=== PATIENT | female | born 1935 | race Caucasian/White ===

== ENCOUNTER → 2017-07-23 | Outpatient (CLI) | payer MEDICARE, MEDICAID ==
[~2017-07-23] MED LIST: CHOL200024 PO; FAMO40TA61 PO; IBUP-1484 PO; LOSA25TA5 PO; OXYB5TAB7 PO
[2017-07-23 09:47] LABS: HEMATOCRIT 40.6 % (34.6-47.8); HEMOGLOBIN 13.6 g/dL (11.7-16.4); WHITE BLOOD COUNT 8.9 x10^3/uL (3.4-10)
[2017-07-23 09:56] LABS: BLOOD UREA NITROGEN 12 mg/dL (7-18)
[2017-07-23 09:59] LABS: ASPARTATE AMINO TRANSFERASE 19 U/L (15-37)
[2017-07-23 10:29] LABS: HIV 1&2 ANTIBODY SCREEN Nonreactive (Nonreactive); HIV-1 p24 ANTIGEN Nonreactive (Nonreactive)
== END | disposition home or self-care (01) ==
LOC: STAR 08:07
PROVIDERS: ATTEND Orthopaedic Surgery
DX: Z01.818 Encounter for other preprocedural examination (principal); T84.84XS Pain due to internal orthopedic prosthetic devices, implants and grafts, sequela; R94.31 Abnormal electrocardiogram [ECG] [EKG]; M17.12 Unilateral primary osteoarthritis, left knee; R79.1 Abnormal coagulation profile; R79.89 Other specified abnormal findings of blood chemistry; Z96.652 Presence of left artificial knee joint
CPT/HCPCS: 36415; 80053; 83036; 85025; 85610; 85730; 86703; 87081; 87899; 93005; G0435

== ENCOUNTER → 2018-03-08 | Outpatient (CLI) | payer MEDICARE, MEDICAID ==
[~2018-03-08] MED LIST changes: +ACET-709 PO; +ASPI-621 PO; +CALC-534 PO; +CELE200C PO; +DIAZ5TAB PO; +DOCU-131 PO; +FISH OIL; +FISH1CAP PO; +FLUC200T4 PO; +MELA1TAB8 PO; +NAPR-856 PO; +ONDA4TAB10 PO; +OXYC5CAP2 PO; +OXYC5TAB2 PO; +RANI150T4 PO; +TRAM50TA2 PO
[2018-03-08 10:26] LABS: BASOPHILS # (AUTO) 0.04 x10^3/uL (0-0.1); BASOPHILS % (AUTO) 0 % (0-1); EOSINOPHILS # (AUTO) 0.33 x10^3/uL (0-0.4); EOSINOPHILS % (AUTO) 3 % (1-7); LYMPHOCYTES # (AUTO) 3.18 x10^3/uL (1-3.4); LYMPHOCYTES % (AUTO) 28 % (22-44); MD NO; MEAN CORPUSCULAR HEMOGLOBIN 29.7 pg (27.0-34.8); MEAN CORPUSCULAR VOLUME 87.3 fL (80-100); MEAN PLATELET VOLUME 8.7 fL (7.4-10.4); MONOCYTES # (AUTO) 0.72 x10^3/uL (0.2-0.8); MONOCYTES % (AUTO) 6 % (2-9); NEUTROPHILS # (AUTO) 7.14 x10^3/uL (1.8-6.8); NEUTROPHILS % (AUTO) 63 % (42-75); PLATELET COUNT 269 x10^3/uL (130-400); RED BLOOD COUNT 4.67 x10^6/uL (3.82-5.3); RED CELL DISTRIBUTION WIDTH 14.6 % (9.6-15.2)
[2018-03-08 10:28] LABS: MICROSCOPIC NOT IND
[2018-03-08 10:31] LABS: INTERNATIONAL NORMALIZED RATIO 0.99 (0.93-1.1); PROTHROMBIN TIME 10.3 Seconds (9.6-11.5)
[2018-03-08 10:34] LABS: CULTURE INDICATED? NO
[2018-03-08 10:37] LABS: CHLORIDE 102 mmol/L (98-107)
[2018-03-08 10:48] LABS: ALANINE AMINOTRANSFERASE 22 U/L (12-78); ALBUMIN 4.3 g/dL (3.4-5.0); ALKALINE PHOSPHATASE 119 U/L (45-117); ANION GAP 6 mmol/L (5-15); BILIRUBIN,TOTAL 0.6 mg/dL (0.2-1.0); CREATININE 0.76 mg/dL (0.55-1.02); TOTAL PROTEIN 7.7 g/dL (6.4-8.2)
[2018-03-08 12:35] LABS: HEMOGLOBIN A1C 5.4 % (4.2-6.3)
== END | disposition home or self-care (01) ==
LOC: STAR 08:44
PROVIDERS: ATTEND Orthopaedic Surgery
DX: Z01.818 Encounter for other preprocedural examination (principal); M17.11 Unilateral primary osteoarthritis, right knee
CPT/HCPCS: 36415; 80053; 81003; 83036; 85025; 85610; 85730; 87081; 87147; 87806; 93005; G0475

== ENCOUNTER 2018-03-14 05:37 | Observation (INO) | payer MEDICARE, MEDICAID ==
[~2018-03-14] VITALS: Ht 149.9 cm; Wt 74.2 kg
[2018-03-14] MEDS ORDERED: VANCOMYCIN PER PHARMACY MC ONE (06:04)
[2018-03-14] MEDS ORDERED: LACTATED RINGERS 1,000 ML IV SCH (06:14)
[2018-03-14] MEDS ORDERED: GABAPENTIN 300 MG CAPSULE PO ONE (06:30)
[2018-03-14] MEDS ORDERED: VANCOMYCIN PMX 1GM/200ML 200 ML IV ONE (06:30)
[2018-03-14] MEDS ORDERED: ACETAMINOPHEN 500 MG TABLET PO ONE (06:30)
[2018-03-14] MEDS ORDERED: KETOROLAC 60 MG/2 ML ONE (06:41)
[2018-03-14] MEDS ORDERED: TRANEXAMIC ACID 100 MG/ML, 10ML ONE ×4 (06:41)
[2018-03-14 06:42] VITALS: BP 150/84
[2018-03-14] MEDS ORDERED: EPINEPHRINE 1 MG/ML, 1ML ONE (06:42)
[2018-03-14] MEDS ORDERED: ROPIvacaine/PF 0.2%, 20 ML ONE (06:42)
[2018-03-14] MEDS ORDERED: MIDAZOLAM 1 MG/ML, 2ML ONE (06:56)
[2018-03-14] MEDS ORDERED: FENTANYL PF 100 MCG/2ML ONE (06:56)
[2018-03-14] MEDS ORDERED: EPHEDRINE 50 MG/ML, 1ML IM PRN (08:00)
[2018-03-14] MEDS ORDERED: FENTANYL PF 100 MCG/2ML IV PRN (08:00)
[2018-03-14] MEDS ORDERED: hydrALAzine 20 MG/ML, 1ML IV PRN (08:00)
[2018-03-14] MEDS ORDERED: MEPERIDINE/PF 25MG/0.5ML IVPush PRN (08:00)
[2018-03-14] MEDS ORDERED: PROMETHAZINE 25 MG/ML, 1ML IM PRN ×2 (08:00→09:30)
[2018-03-14] MEDS ORDERED: LORazepam 2 MG/ML, 1ML IVPush PRN (08:00)
[2018-03-14] MEDS ORDERED: ONDANSETRON ODT 8 MG PO PRN (08:00)
[2018-03-14] MEDS ORDERED: MORPHINE SULFATE 4 MG/ML, 1ML IVPush PRN (08:00)
[2018-03-14] MEDS ORDERED: LABETALOL 5MG/ML, 20ML IV PRN (08:00)
[2018-03-14] MEDS ORDERED: ALBUTEROL/IPRATROPIUM 2.5MG/0.5MG, 3 ML NPPB PRN (08:00)
[2018-03-14] MEDS ORDERED: DIAZEPAM 5 MG/ML, 2ML IVPush PRN (08:00)
[2018-03-14] MEDS ORDERED: MIDAZOLAM 1 MG/ML, 2ML IV PRN (08:00)
[2018-03-14] MEDS ORDERED: OXYcodone 5 MG/5 ML ORAL.SOL UDC PO PRN (08:00)
[2018-03-14] MEDS ORDERED: PROMETHAZINE 25 MG/ML, 1ML IV PRN (08:00)
[2018-03-14] MEDS ORDERED: HYDROmorphone 1 MG/ML, 1ML IV PRN (08:00)
[2018-03-14] MEDS ORDERED: SCOPOLAMINE PATCH, 1.5MG PATCH.TD72 TD PRN ×2 (08:00→09:30)
[2018-03-14] MEDS ORDERED: BUPIVACAINE/PF 0.25% ONE (08:37)
[2018-03-14] MEDS ORDERED: DEXAMETHASONE 4 MG/ML, 1ML ONE (08:37)
[2018-03-14] MEDS ORDERED: PROPOFOL 10 MG/ML, 20ML ONE (08:37)
[2018-03-14] MEDS ORDERED: CEFAZOLIN 1,000 MG ONE (08:37)
[2018-03-14] MEDS ORDERED: ONDANSETRON 2MG/ML, 2ML ONE (08:37)
[2018-03-14] MEDS ORDERED: LIDOCAINE-MPF 2% ,5ML ONE (08:37)
[2018-03-14] MEDS ORDERED: MORPHINE SULFATE 4 MG/ML, 1ML ONE (08:45)
[2018-03-14] MEDS ORDERED: TRANEXAMIC ACID 1,000 MG in SODIUM CHLORIDE 0.9% 100 ML IVPB ONE (09:30)
[2018-03-14] MEDS ORDERED: DIPHENHYDRAMINE 50 MG CAPSULE PO PRN (09:30)
[2018-03-14] MEDS ORDERED: morphine SULFATE 10 MG/ML, 1ML IV PRN (09:30)
[2018-03-14] MEDS ORDERED: MAGNESIUM HYDROXIDE 8%, 30ML UDC PO PRN (09:30)
[2018-03-14] MEDS ORDERED: DIAZEPAM 5 MG TABLET PO PRN (09:30)
[2018-03-14] MEDS ORDERED: OXYcodone IR 5MG TABLET PO PRN (09:30)
[2018-03-14] MEDS: CEFAZOLIN PMX 1GM/50ML 50 ML IVPB SCH ×3 (09:30→19:00)
[2018-03-14] MEDS ORDERED: ONDANSETRON 4 MG TABLET PO PRN (09:30)
[2018-03-14 10:30] VITALS: BP 117/65
[2018-03-14 14:15] VITALS: BP 103/60
[2018-03-14 20:00] VITALS: BP 95/58
[2018-03-14] MEDS ORDERED: MELATONIN 5 MG TABLET PO SCH (21:00)
[2018-03-14] MEDS ORDERED: FAMOTIDINE 40 MG TABLET PO SCH (21:00)
[2018-03-14] MEDS: DOCUSATE 100 MG CAPSULE PO SCH (21:19)
[2018-03-15 00:01] VITALS: BP 109/59
[2018-03-15] MEDS: HYDROcodone/APAP 5/325 TABLET PO PRN ×4 (00:03→14:06)
[2018-03-15] MEDS ORDERED: CEFAZOLIN PMX 1GM/50ML 50 ML IVPB SCH (03:00)
[2018-03-15 05:26] VITALS: BP 98/53
[2018-03-15 07:00] VITALS: BP 100/65
[2018-03-15 07:38] VITALS: BP 100/65
[2018-03-15] MEDS ORDERED: OXYBUTYNIN CHLORIDE 5 MG TABLET PO SCH ×2 (09:00)
[2018-03-15] MEDS ORDERED: FLUCONAZOLE 200 MG TABLET PO SCH ×2 (09:00)
[2018-03-15] MEDS ORDERED: CALCIUM/VITAMIN D3 250-125 TABLET PO SCH (09:00)
[2018-03-15] MEDS ORDERED: LOSARTAN 25MG TABLET PO SCH ×2 (09:00)
[2018-03-15] MEDS ORDERED: NAPROXEN 500 MG TABLET PO SCH (09:00)
[2018-03-15] MEDS ORDERED: ASPI-515 PO (09:26)
[2018-03-15] MEDS ORDERED: ONDA4TAB7 PO (09:28)
[2018-03-15] MEDS ORDERED: DOCU-131 PO (09:28)
[2018-03-15] MEDS ORDERED: TRAM50TA2 PO (09:29)
[2018-03-15] MEDS ORDERED: DIAZ5TAB PO (09:30)
[2018-03-15] MEDS ORDERED: CELE200C PO (09:32)
[2018-03-15] MEDS ORDERED: OXYC5TAB3 PO (09:34)
[2018-03-15] MEDS ORDERED: MAGN400O7 PO (09:39)
[2018-03-15] MEDS: DOCUSATE 100 MG CAPSULE PO SCH (09:49)
[2018-03-15 13:14] VITALS: BP 103/62
[2018-03-15 14:51] VITALS: BP 110/74
[2018-03-15] MEDS ORDERED: ASPIRIN 325 MG TABLET EC PO SCH (18:00)
== END 2018-03-15 14:50 | disposition home or self-care (01) ==
LOC: INTOOBSV 05:37 → ORIP 05:37 → 4NOR 10:22 → DCLOUNGE 03-15 14:15
PROVIDERS: ADMIT Orthopaedic Surgery; ATTEND Orthopaedic Surgery
DX: M17.11 Unilateral primary osteoarthritis, right knee (principal); I10 Essential (primary) hypertension
CPT/HCPCS: 27447; 73560; 96365; 96375; 97116; 97150; 97161; 97530; C1713; C1776; G0378; J0171; J0690; J1100; J1885; J2250; J2405; J2704; J2795; J3010; J3370; J3490; J7120

== ENCOUNTER → 2019-08-31 | Outpatient (CLI) | payer MEDICARE, MEDICAID ==
[~2019-08-31] MED LIST changes: +ASPI-515 PO; -ASPI-621 PO; +ASPI81TA45 PO; -IBUP-1484 PO; +IBUP-1902 PO; +LOSA25TA25 PO; -LOSA25TA5 PO; +MAGN400O7 PO; +ONDA4TAB7 PO; +OXYB5TAB10 PO; -OXYB5TAB7 PO; +OXYC5TAB3 PO
== END | disposition home or self-care (01) ==
LOC: CFH 08:01
PROVIDERS: ATTEND Registered Nurse
DX: I08.8 Other rheumatic multiple valve diseases (principal); J96.11 Chronic respiratory failure with hypoxia; I10 Essential (primary) hypertension; Z74.09 Other reduced mobility; Z77.22 Contact with and (suspected) exposure to environmental tobacco smoke (acute) (chronic); Z68.32 Body mass index [BMI] 32.0-32.9, adult
CPT/HCPCS: 93306

== ENCOUNTER 2019-09-05 19:24 | Inpatient (IN) | payer MEDICARE, MEDICAID ==
[~2019-09-05] VITALS: Ht 154.9 cm; Wt 76.9 kg
--- NOTE | 2019-09-05 19:32 | NUR ---
PT BIB EMS FROM HOME. PT HAS HOME RESP THERAPY TX PER PULMONOLOGY, AFTER DOING BREATHING EXERCISES PT EXPRESSED FEELING SOB AND HAVING CP. UPON EMS ARRIVAL PT ON 2L NC PT SAT LOW 80'S, PT PLACED ON 6L NC AND SATS IMPROVED TO 90'S. PT HAS HX OF HTN AND SOME TYPE OF PULMONARY DISEASE. PT CONNECTED TO ALL MONITORING VSS, CALL LIGHT IN REACH. PA AT BEDSIDE TO ASSESS PT.
[2019-09-05 19:55] LABS: BASOPHILS # (AUTO) 0.03 x10^3/uL (0-0.1); BASOPHILS % (AUTO) 0 % (0-1); EOSINOPHILS # (AUTO) 0.02 x10^3/uL (0-0.4); EOSINOPHILS % (AUTO) 0 % (1-7); LYMPHOCYTES # (AUTO) 0.88 x10^3/uL (1-3.4); LYMPHOCYTES % (AUTO) 7 % (22-44); MD NO; MEAN CORPUSCULAR HGB CONC 32.5 g/dL (32.4-35.8); MEAN CORPUSCULAR VOLUME 89.1 fL (80-100); MEAN PLATELET VOLUME 8.1 fL (7.4-10.4); MONOCYTES # (AUTO) 0.14 x10^3/uL (0.2-0.8); MONOCYTES % (AUTO) 1 % (2-9); NEUTROPHILS # (AUTO) 11.95 x10^3/uL (1.8-6.8); NEUTROPHILS % (AUTO) 92 % (42-75); PLATELET COUNT 292 x10^3/uL (130-400); RED BLOOD COUNT 4.63 x10^6/uL (3.82-5.3); RED CELL DISTRIBUTION WIDTH 17.3 % (9.6-15.2)
[2019-09-05] MEDS ORDERED: ALBUTEROL/IPRATROPIUM 2.5MG/0.5MG, 3 ML NPPB ONE (20:00)
[2019-09-05 20:07] LABS: ALANINE AMINOTRANSFERASE 35 U/L (12-78); ALBUMIN 3.3 g/dL (3.4-5.0); ANION GAP 10 mmol/L (5-15); CALCIUM 8.9 mg/dL (8.5-10.1); CHLORIDE 95 mmol/L (98-107); CREATININE 1.17 mg/dL (0.55-1.02)
[2019-09-05 20:11] LABS: ALKALINE PHOSPHATASE 82 U/L (45-117); BILIRUBIN,TOTAL 0.8 mg/dL (0.2-1.0)
[2019-09-05] MEDS: ASPIRIN 325 MG TABLET PO ONE ×2 (20:30→20:37)
[2019-09-05] MEDS ORDERED: FUROSEMIDE 40 MG/4 ML IV ONE (20:30)
[2019-09-05] MEDS ORDERED: ASPIRIN 325 MG TABLET ONE (20:34)
[2019-09-05] MEDS ORDERED: FUROSEMIDE 40 MG/4 ML ONE (20:35)
--- NOTE | 2019-09-05 20:37 | NUR ---
PT MEDICATED PER DEC. PER PT AND FAMILY PT GOT ASA EN ROUTE, MD UPDATED. ASA NOT GIVEN HERE PER MD
[2019-09-05] MEDS ORDERED: MORPHINE SULFATE 4 MG/ML, 1ML IVPush ONE (21:30)
[2019-09-05] MEDS ORDERED: morphine SULFATE 10 MG/ML, 1ML IVPush PRN (22:30)
[2019-09-05] MEDS ORDERED: OXYcodone IR 5MG TABLET PO PRN (22:30)
[2019-09-05] MEDS ORDERED: ONDANSETRON 2MG/ML, 2ML IVPush PRN (22:30)
[2019-09-05] MEDS ORDERED: hydrALAzine 20 MG/ML, 1ML IVPush PRN (22:30)
[2019-09-05] MEDS ORDERED: PROMETHAZINE 25 MG/ML, 1ML IM PRN (22:30)
[2019-09-05] MEDS ORDERED: ONDANSETRON ODT 4 MG PO PRN (22:30)
[2019-09-05] MEDS ORDERED: BISACODYL 10 MG SUPP PR PRN (22:30)
[2019-09-05 22:42] VITALS: BP 128/85
[2019-09-05 22:50] LABS: FREE T4 (FREE THYROXINE) 1.19 ng/dL (0.76-1.46)
[2019-09-06 00:28] VITALS: BP 105/72
[2019-09-06] MEDS: HEPARIN 5,000 UNITS/ML, 1ML SQ SCH ×4 (01:22→22:55)
[2019-09-06] MEDS ORDERED: OMNIPAQUE 350 MG/ML, 100ML BOTTLE ONE (03:14)
[2019-09-06 06:32] LABS: BASOPHILS # (AUTO) 0.02 x10^3/uL (0-0.1); BASOPHILS % (AUTO) 0 % (0-1); EOSINOPHILS # (AUTO) 0.16 x10^3/uL (0-0.4); EOSINOPHILS % (AUTO) 2 % (1-7); LYMPHOCYTES # (AUTO) 1.71 x10^3/uL (1-3.4); LYMPHOCYTES % (AUTO) 16 % (22-44); MD NO; MEAN CORPUSCULAR HEMOGLOBIN 28.7 pg (27.0-34.8); MEAN CORPUSCULAR HGB CONC 32.3 g/dL (32.4-35.8); MEAN CORPUSCULAR VOLUME 88.8 fL (80-100); MEAN PLATELET VOLUME 8.4 fL (7.4-10.4); MONOCYTES # (AUTO) 0.45 x10^3/uL (0.2-0.8); MONOCYTES % (AUTO) 4 % (2-9); NEUTROPHILS # (AUTO) 8.13 x10^3/uL (1.8-6.8); NEUTROPHILS % (AUTO) 78 % (42-75); PLATELET COUNT 268 x10^3/uL (130-400); RED CELL DISTRIBUTION WIDTH 17.8 % (9.6-15.2)
[2019-09-06 06:37] LABS: ALBUMIN 3.3 g/dL (3.4-5.0); CALCIUM 8.5 mg/dL (8.5-10.1); CHLORIDE 94 mmol/L (98-107)
[2019-09-06 06:43] LABS: ALANINE AMINOTRANSFERASE 37 U/L (12-78); ALKALINE PHOSPHATASE 75 U/L (45-117); ANION GAP 8 mmol/L (5-15); BILIRUBIN,TOTAL 0.7 mg/dL (0.2-1.0); CHOL/HDL RATIO 2.6; CHOLESTEROL, TOTAL 153 mg/dL (140-239); CREATININE 0.87 mg/dL (0.55-1.02); HDL CHOL % 39 % (28-40); HDL CHOLESTEROL (DIRECT) 60 mg/dL (40-60); LDL CHOLESTEROL,CALCULATED 74 mg/dL (54-169); LDL/HDL RATIO 1.2 (0.5-3.0); TOTAL PROTEIN 6.5 g/dL (6.4-8.2); TRIGLYCERIDES 95 mg/dL (50-200); VLDL CHOLESTEROL 19 mg/dL (0-25)
[2019-09-06 06:54] VITALS: BP 155/90
[2019-09-06] MEDS: FUROSEMIDE 20 MG/2 ML IV SCH (08:38)
[2019-09-06 14:33] VITALS: BP 100/64
[2019-09-06 19:10] VITALS: BP 121/58
[2019-09-07 01:34] VITALS: BP 122/82
[2019-09-07] MEDS: HEPARIN 5,000 UNITS/ML, 1ML SQ SCH ×3 (07:38→23:05)
[2019-09-07] MEDS: FUROSEMIDE 20 MG/2 ML IV SCH (07:38)
[2019-09-07 07:44] VITALS: BP 123/77
[2019-09-07 08:10] LABS: BASOPHILS % (AUTO) 1 % (0-1); EOSINOPHILS # (AUTO) 0.95 x10^3/uL (0-0.4); EOSINOPHILS % (AUTO) 9 % (1-7); LYMPHOCYTES # (AUTO) 1.93 x10^3/uL (1-3.4); LYMPHOCYTES % (AUTO) 18 % (22-44); MD NO; MEAN CORPUSCULAR HEMOGLOBIN 28.6 pg (27.0-34.8); MEAN CORPUSCULAR HGB CONC 32.6 g/dL (32.4-35.8); MEAN CORPUSCULAR VOLUME 87.8 fL (80-100); MEAN PLATELET VOLUME 7.7 fL (7.4-10.4); MONOCYTES % (AUTO) 5 % (2-9); NEUTROPHILS # (AUTO) 7.34 x10^3/uL (1.8-6.8); NEUTROPHILS % (AUTO) 68 % (42-75); PLATELET COUNT 279 x10^3/uL (130-400); RED BLOOD COUNT 4.64 x10^6/uL (3.82-5.3); RED CELL DISTRIBUTION WIDTH 17.6 % (9.6-15.2)
[2019-09-07 08:20] LABS: ANION GAP 7 mmol/L (5-15); CALCIUM 8.6 mg/dL (8.5-10.1); CHLORIDE 94 mmol/L (98-107); CREATININE 0.92 mg/dL (0.55-1.02)
[2019-09-07 12:51] VITALS: BP 123/86
[2019-09-07] MEDS ORDERED: MELO7.5T31 PO (15:55)
[2019-09-07] MEDS ORDERED: PRED5TAB19 PO (15:55)
[2019-09-07] MEDS ORDERED: ESCI10TA PO (15:55)
[2019-09-07] MEDS ORDERED: OMEP20CA14 PO (15:55)
[2019-09-07] MEDS ORDERED: CETI10TA32 PO (15:55)
[2019-09-07 20:03] VITALS: BP 121/83
[2019-09-07] MEDS: OXYBUTYNIN CHLORIDE 5 MG TABLET PO SCH (21:26)
[2019-09-08 02:00] VITALS: BP 125/83
[2019-09-08 05:59] LABS: BASOPHILS # (AUTO) 0.05 x10^3/uL (0-0.1); BASOPHILS % (AUTO) 0 % (0-1); EOSINOPHILS # (AUTO) 0.89 x10^3/uL (0-0.4); EOSINOPHILS % (AUTO) 8 % (1-7); LYMPHOCYTES # (AUTO) 1.73 x10^3/uL (1-3.4); LYMPHOCYTES % (AUTO) 16 % (22-44); MD NO; MEAN CORPUSCULAR HEMOGLOBIN 29.1 pg (27.0-34.8); MEAN CORPUSCULAR HGB CONC 32.9 g/dL (32.4-35.8); MEAN CORPUSCULAR VOLUME 88.6 fL (80-100); MEAN PLATELET VOLUME 8.2 fL (7.4-10.4); MONOCYTES # (AUTO) 0.66 x10^3/uL (0.2-0.8); MONOCYTES % (AUTO) 6 % (2-9); NEUTROPHILS # (AUTO) 7.41 x10^3/uL (1.8-6.8); NEUTROPHILS % (AUTO) 69 % (42-75); PLATELET COUNT 281 x10^3/uL (130-400); RED BLOOD COUNT 4.73 x10^6/uL (3.82-5.3); RED CELL DISTRIBUTION WIDTH 17.3 % (9.6-15.2)
[2019-09-08 06:10] LABS: ANION GAP 5 mmol/L (5-15); CALCIUM 8.8 mg/dL (8.5-10.1); CHLORIDE 94 mmol/L (98-107); CREATININE 0.77 mg/dL (0.55-1.02)
[2019-09-08 07:16] VITALS: BP 106/70
[2019-09-08] MEDS: OMEPRAZOLE 20 MG CAPSULE.DR PO SCH (07:42)
[2019-09-08] MEDS: HEPARIN 5,000 UNITS/ML, 1ML SQ SCH ×3 (07:42→23:09)
[2019-09-08] MEDS: LOSARTAN 25MG TABLET PO SCH (09:25)
[2019-09-08] MEDS: OXYBUTYNIN CHLORIDE 5 MG TABLET PO SCH ×2 (09:26→20:38)
[2019-09-08] MEDS: FLUCONAZOLE 200 MG TABLET PO SCH (09:26)
[2019-09-08] MEDS: CETIRIZINE 10 MG TABLET PO SCH (09:26)
[2019-09-08] MEDS: FUROSEMIDE 20 MG/2 ML IV SCH (09:27)
[2019-09-08] MEDS: ESCITALOPRAM 10MG TABLET PO SCH (09:35)
[2019-09-08] MEDS ORDERED: SPIRONOLACTONE 25 MG TABLET PO SCH (10:00)
[2019-09-08] MEDS: SILDENAFIL 20 MG TABLET PO SCH ×3 (11:11→20:38)
[2019-09-08 12:56] VITALS: BP 94/63
[2019-09-08 19:23] VITALS: BP 105/69
[2019-09-08] MEDS ORDERED: SODIUM CHLORIDE NASAL SPRAY 45ML BOTTLE NAS PRN (21:30)
[2019-09-09 00:29] VITALS: BP 112/72
[2019-09-09 05:01] LABS: BASOPHILS # (AUTO) 0.04 x10^3/uL (0-0.1); BASOPHILS % (AUTO) 0 % (0-1); EOSINOPHILS # (AUTO) 0.66 x10^3/uL (0-0.4); EOSINOPHILS % (AUTO) 6 % (1-7); LYMPHOCYTES # (AUTO) 2.27 x10^3/uL (1-3.4); LYMPHOCYTES % (AUTO) 21 % (22-44); MD NO; MEAN CORPUSCULAR HEMOGLOBIN 29.1 pg (27.0-34.8); MEAN CORPUSCULAR HGB CONC 32.6 g/dL (32.4-35.8); MEAN CORPUSCULAR VOLUME 89.4 fL (80-100); MEAN PLATELET VOLUME 8.5 fL (7.4-10.4); MONOCYTES # (AUTO) 0.67 x10^3/uL (0.2-0.8); MONOCYTES % (AUTO) 6 % (2-9); NEUTROPHILS # (AUTO) 7.23 x10^3/uL (1.8-6.8); NEUTROPHILS % (AUTO) 67 % (42-75); PLATELET COUNT 294 x10^3/uL (130-400); RED BLOOD COUNT 4.74 x10^6/uL (3.82-5.3); RED CELL DISTRIBUTION WIDTH 17.2 % (9.6-15.2)
[2019-09-09 05:11] LABS: ANION GAP 5 mmol/L (5-15); CALCIUM 8.9 mg/dL (8.5-10.1); CHLORIDE 95 mmol/L (98-107)
[2019-09-09 05:12] LABS: CREATININE 0.75 mg/dL (0.55-1.02)
[2019-09-09] MEDS: HEPARIN 5,000 UNITS/ML, 1ML SQ SCH ×3 (06:04→22:51)
[2019-09-09] MEDS: OMEPRAZOLE 20 MG CAPSULE.DR PO SCH (06:04)
[2019-09-09 07:50] VITALS: BP 101/68
[2019-09-09] MEDS ORDERED: POTASSIUM CHLORIDE 20 MEQ TAB.ER.PRT PO ONE (08:00)
[2019-09-09] MEDS: LOSARTAN 25MG TABLET PO SCH (08:37)
[2019-09-09] MEDS: OXYBUTYNIN CHLORIDE 5 MG TABLET PO SCH ×2 (08:38→20:01)
[2019-09-09] MEDS: SILDENAFIL 20 MG TABLET PO SCH ×3 (08:38→20:01)
[2019-09-09] MEDS: ESCITALOPRAM 10MG TABLET PO SCH (08:39)
[2019-09-09] MEDS: CETIRIZINE 10 MG TABLET PO SCH (08:40)
[2019-09-09] MEDS: FLUCONAZOLE 200 MG TABLET PO SCH (08:40)
[2019-09-09] MEDS: FUROSEMIDE 20 MG/2 ML IV SCH (08:41)
[2019-09-09] MEDS: methylPREDNISolone SOD SUCC 125 MG/2 ML IVPush SCH ×2 (12:27→17:57)
[2019-09-09 13:41] VITALS: BP 116/65
[2019-09-09 20:07] VITALS: BP 101/63
[2019-09-09] MEDS: DOCUSATE 100 MG CAPSULE PO PRN (22:51)
[2019-09-10] MEDS: methylPREDNISolone SOD SUCC 125 MG/2 ML IVPush SCH ×4 (01:07→20:00)
[2019-09-10 02:22] VITALS: BP 114/74
[2019-09-10 05:38] LABS: BASOPHILS # (AUTO) 0.04 x10^3/uL (0-0.1); BASOPHILS % (AUTO) 0 % (0-1); EOSINOPHILS % (AUTO) 0 % (1-7); LYMPHOCYTES # (AUTO) 1.17 x10^3/uL (1-3.4); LYMPHOCYTES % (AUTO) 9 % (22-44); MD NO; MEAN CORPUSCULAR HEMOGLOBIN 29.1 pg (27.0-34.8); MEAN CORPUSCULAR HGB CONC 32.6 g/dL (32.4-35.8); MEAN CORPUSCULAR VOLUME 89.4 fL (80-100); MEAN PLATELET VOLUME 8.7 fL (7.4-10.4); MONOCYTES # (AUTO) 0.08 x10^3/uL (0.2-0.8); MONOCYTES % (AUTO) 1 % (2-9); NEUTROPHILS # (AUTO) 12.01 x10^3/uL (1.8-6.8); NEUTROPHILS % (AUTO) 90 % (42-75); PLATELET COUNT 285 x10^3/uL (130-400); RED BLOOD COUNT 4.44 x10^6/uL (3.82-5.3); RED CELL DISTRIBUTION WIDTH 17.7 % (9.6-15.2)
[2019-09-10 05:41] LABS: ANION GAP 7 mmol/L (5-15); CALCIUM 8.9 mg/dL (8.5-10.1); CHLORIDE 95 mmol/L (98-107)
[2019-09-10 05:44] LABS: CREATININE 0.87 mg/dL (0.55-1.02)
[2019-09-10] MEDS: POLYETHYLENE GLYCOL 17 GM PACKET PO PRN (06:30)
[2019-09-10] MEDS: OMEPRAZOLE 20 MG CAPSULE.DR PO SCH (06:30)
[2019-09-10] MEDS: HEPARIN 5,000 UNITS/ML, 1ML SQ SCH ×3 (06:30→23:28)
[2019-09-10] MEDS: FUROSEMIDE 20 MG/2 ML IV SCH (08:25)
[2019-09-10] MEDS: SILDENAFIL 20 MG TABLET PO SCH ×3 (08:26→20:00)
[2019-09-10] MEDS: LOSARTAN 25MG TABLET PO SCH (08:26)
[2019-09-10] MEDS: FLUCONAZOLE 200 MG TABLET PO SCH (08:26)
[2019-09-10] MEDS: OXYBUTYNIN CHLORIDE 5 MG TABLET PO SCH ×2 (08:26→20:00)
[2019-09-10] MEDS: CETIRIZINE 10 MG TABLET PO SCH (08:26)
[2019-09-10] MEDS: ESCITALOPRAM 10MG TABLET PO SCH (10:07)
[2019-09-10 10:20] VITALS: BP 96/61
[2019-09-10 13:59] VITALS: BP 113/62
[2019-09-10 19:37] VITALS: BP 96/52
[2019-09-10] MEDS: DOCUSATE 100 MG CAPSULE PO PRN (20:10)
[2019-09-11 01:06] VITALS: BP 104/62
[2019-09-11] MEDS: methylPREDNISolone SOD SUCC 125 MG/2 ML IVPush SCH ×4 (02:26→20:58)
[2019-09-11 05:16] LABS: ANION GAP 6 mmol/L (5-15); CALCIUM 8.8 mg/dL (8.5-10.1); CHLORIDE 94 mmol/L (98-107); CREATININE 0.95 mg/dL (0.55-1.02)
[2019-09-11] MEDS: OMEPRAZOLE 20 MG CAPSULE.DR PO SCH (05:53)
[2019-09-11] MEDS: POLYETHYLENE GLYCOL 17 GM PACKET PO PRN (06:00)
[2019-09-11 06:54] VITALS: BP 100/63
[2019-09-11] MEDS: HEPARIN 5,000 UNITS/ML, 1ML SQ SCH ×2 (08:39→16:26)
[2019-09-11] MEDS: FUROSEMIDE 20 MG/2 ML IV SCH (08:40)
[2019-09-11] MEDS: FLUCONAZOLE 200 MG TABLET PO SCH (08:53)
[2019-09-11] MEDS: SILDENAFIL 20 MG TABLET PO SCH ×3 (08:53→20:59)
[2019-09-11] MEDS: LOSARTAN 25MG TABLET PO SCH (08:53)
[2019-09-11] MEDS: OXYBUTYNIN CHLORIDE 5 MG TABLET PO SCH ×2 (08:54→20:59)
[2019-09-11] MEDS: ESCITALOPRAM 10MG TABLET PO SCH (08:54)
[2019-09-11] MEDS: CETIRIZINE 10 MG TABLET PO SCH (08:54)
[2019-09-11 12:46] VITALS: BP 99/50
[2019-09-11] MEDS: DOCUSATE 100 MG CAPSULE PO PRN (14:30)
[2019-09-11] MEDS: CEFTRIAXONE PMX 1GM/50ML 50 ML IV SCH (16:25)
[2019-09-11] MEDS: DOXYCYCLINE 100MG TABLET PO SCH (20:59)
[2019-09-11 21:47] VITALS: BP 101/64
[2019-09-12] MEDS: HEPARIN 5,000 UNITS/ML, 1ML SQ SCH ×3 (00:46→16:17)
[2019-09-12 02:27] VITALS: BP 116/75
[2019-09-12] MEDS: methylPREDNISolone SOD SUCC 125 MG/2 ML IVPush SCH ×3 (02:46→21:23)
[2019-09-12 05:21] LABS: MEAN CORPUSCULAR HEMOGLOBIN 28.7 pg (27.0-34.8); MEAN CORPUSCULAR HGB CONC 32.6 g/dL (32.4-35.8); MEAN CORPUSCULAR VOLUME 88.2 fL (80-100); MEAN PLATELET VOLUME 8.4 fL (7.4-10.4); PLATELET COUNT 268 x10^3/uL (130-400); RED BLOOD COUNT 4.01 x10^6/uL (3.82-5.3); RED CELL DISTRIBUTION WIDTH 17.6 % (9.6-15.2)
[2019-09-12 05:25] LABS: ANION GAP 6 mmol/L (5-15); CALCIUM 8.8 mg/dL (8.5-10.1); CHLORIDE 96 mmol/L (98-107)
[2019-09-12 05:27] LABS: CREATININE 0.94 mg/dL (0.55-1.02)
[2019-09-12] MEDS: OMEPRAZOLE 20 MG CAPSULE.DR PO SCH (05:37)
[2019-09-12 05:59] LABS: BASOPHILS # (AUTO) 0.01 x10^3/uL (0-0.1); BASOPHILS % (AUTO) 0 % (0-1); EOSINOPHILS % (AUTO) 0 % (1-7); LYMPHOCYTES # (AUTO) 0.83 x10^3/uL (1-3.4); LYMPHOCYTES % (AUTO) 5 % (22-44); MD SCAN; MONOCYTES # (AUTO) 0.32 x10^3/uL (0.2-0.8); MONOCYTES % (AUTO) 2 % (2-9); NEUTROPHILS # (AUTO) 14.58 x10^3/uL (1.8-6.8); NEUTROPHILS % (AUTO) 93 % (42-75)
[2019-09-12] MEDS: SILDENAFIL 20 MG TABLET PO SCH ×3 (09:47→21:23)
[2019-09-12] MEDS: DOXYCYCLINE 100MG TABLET PO SCH ×2 (09:47→21:23)
[2019-09-12] MEDS: FUROSEMIDE 20 MG/2 ML IV SCH (09:47)
[2019-09-12] MEDS: OXYBUTYNIN CHLORIDE 5 MG TABLET PO SCH ×2 (09:47→21:23)
[2019-09-12] MEDS: CETIRIZINE 10 MG TABLET PO SCH (09:47)
[2019-09-12] MEDS: LOSARTAN 25MG TABLET PO SCH (09:47)
[2019-09-12] MEDS: ESCITALOPRAM 10MG TABLET PO SCH (09:47)
[2019-09-12] MEDS: FLUCONAZOLE 200 MG TABLET PO SCH (09:47)
[2019-09-12 09:59] VITALS: BP 108/68
[2019-09-12 15:18] LABS: ANA SCREEN NEGATIVE (Negative)
[2019-09-12 15:56] VITALS: BP 100/65
[2019-09-12] MEDS: CEFTRIAXONE PMX 1GM/50ML 50 ML IV SCH (16:18)
--- NOTE | 2019-09-12 18:04 | NUR ---
REC CHOPPED/THIN; swallow precaution sheet to be posted at bedside Addendum: 09/12/19 at [address] Amended: Links added.
[2019-09-12 21:06] VITALS: BP 106/65
[2019-09-13] MEDS: HEPARIN 5,000 UNITS/ML, 1ML SQ SCH ×3 (00:32→16:13)
[2019-09-13 03:29] VITALS: BP 120/82
[2019-09-13 05:10] LABS: BASOPHILS % (AUTO) 0 % (0-1); EOSINOPHILS % (AUTO) 0 % (1-7); LYMPHOCYTES % (AUTO) 6 % (22-44); MD NO; MEAN CORPUSCULAR HEMOGLOBIN 28.6 pg (27.0-34.8); MEAN CORPUSCULAR VOLUME 89.3 fL (80-100); MEAN PLATELET VOLUME 8.2 fL (7.4-10.4); MONOCYTES # (AUTO) 0.37 x10^3/uL (0.2-0.8); MONOCYTES % (AUTO) 3 % (2-9); NEUTROPHILS # (AUTO) 12.34 x10^3/uL (1.8-6.8); NEUTROPHILS % (AUTO) 91 % (42-75); PLATELET COUNT 267 x10^3/uL (130-400); RED CELL DISTRIBUTION WIDTH 17.5 % (9.6-15.2)
[2019-09-13] MEDS: OMEPRAZOLE 20 MG CAPSULE.DR PO SCH (06:16)
[2019-09-13] MEDS: LOSARTAN 25MG TABLET PO SCH (08:19)
[2019-09-13] MEDS: CETIRIZINE 10 MG TABLET PO SCH (08:19)
[2019-09-13] MEDS: OXYBUTYNIN CHLORIDE 5 MG TABLET PO SCH ×2 (08:19→21:43)
[2019-09-13] MEDS: FLUCONAZOLE 200 MG TABLET PO SCH (08:19)
[2019-09-13] MEDS: SILDENAFIL 20 MG TABLET PO SCH ×3 (08:19→21:41)
[2019-09-13] MEDS: DOXYCYCLINE 100MG TABLET PO SCH ×2 (08:19→21:41)
[2019-09-13 08:20] VITALS: BP 115/72
[2019-09-13] MEDS: FUROSEMIDE 20 MG/2 ML IV SCH (08:20)
[2019-09-13] MEDS: ESCITALOPRAM 10MG TABLET PO SCH (11:29)
[2019-09-13 15:03] VITALS: BP 117/70
[2019-09-13] MEDS: CEFTRIAXONE PMX 1GM/50ML 50 ML IV SCH (16:14)
[2019-09-13 18:20] VITALS: BP 122/72
[2019-09-13] MEDS ORDERED: ACETAMINOPHEN 325 MG TABLET PO PRN (22:30)
[2019-09-14 00:13] VITALS: BP 126/64
[2019-09-14] MEDS: HEPARIN 5,000 UNITS/ML, 1ML SQ SCH ×2 (00:13→08:22)
[2019-09-14] MEDS: OMEPRAZOLE 20 MG CAPSULE.DR PO SCH (06:21)
[2019-09-14] MEDS ORDERED: DOXY100T PO (07:17)
[2019-09-14] MEDS ORDERED: SILD20TA PO (07:17)
[2019-09-14] MEDS ORDERED: CEFD300C37 PO (07:17)
[2019-09-14 08:00] VITALS: BP 110/83
[2019-09-14] MEDS: FLUCONAZOLE 200 MG TABLET PO SCH (08:22)
[2019-09-14] MEDS: FUROSEMIDE 20 MG/2 ML IV SCH (08:22)
[2019-09-14] MEDS: SILDENAFIL 20 MG TABLET PO SCH (08:22)
[2019-09-14] MEDS: CETIRIZINE 10 MG TABLET PO SCH (08:22)
[2019-09-14] MEDS: ESCITALOPRAM 10MG TABLET PO SCH (08:22)
[2019-09-14] MEDS: OXYBUTYNIN CHLORIDE 5 MG TABLET PO SCH (08:22)
[2019-09-14] MEDS: LOSARTAN 25MG TABLET PO SCH (08:23)
[2019-09-14] MEDS: DOXYCYCLINE 100MG TABLET PO SCH (08:23)
[2019-09-14 14:06] VITALS: BP 124/86
== END 2019-09-14 15:10 | disposition home health service (06) | DRG 291 ==
LOC: ED 19:51 → EDIP 21:03 → 4WST 23:01 → 5SO 23:48 → DCLOUNGE 09-14 14:36
PROVIDERS: ADMIT Internal Medicine; ATTEND Internal Medicine
DX: I11.0 Hypertensive heart disease with heart failure (principal); J96.21 Acute and chronic respiratory failure with hypoxia; N17.0 Acute kidney failure with tubular necrosis; E87.1 Hypo-osmolality and hyponatremia; J84.112 Idiopathic pulmonary fibrosis; I50.33 Acute on chronic diastolic (congestive) heart failure; E11.9 Type 2 diabetes mellitus without complications; G89.29 Other chronic pain; I07.1 Rheumatic tricuspid insufficiency; I27.29 Other secondary pulmonary hypertension; K21.9 Gastro-esophageal reflux disease without esophagitis; E66.01 Morbid (severe) obesity due to excess calories; Z87.891 Personal history of nicotine dependence; Z68.32 Body mass index [BMI] 32.0-32.9, adult; Z99.81 Dependence on supplemental oxygen
CPT/HCPCS: 36415; 71045; 71275; 74230; 80048; 80053; 80061; 83036; 83520; 83735; 83880; 84100; 84145; 84439; 84443; 84484; 85025; 85379; 86038; 86200; 86235; 86256; 86331; 86431; 86602; 86606; 86609; 86635; 86671; 86698; 87070; 87077; 87186; 87205; 87305; 93005; 99285; G0378; J0696; J1644; J1940; Q9967; J2930; J7512